=== PATIENT | female | born 1950 | race American Indian/Alaskan Native ===

== ENCOUNTER 2017-11-01 09:51 | Outpatient (CLI) | payer OTHER | END 2017-11-01 09:59 | disposition home or self-care (01) | LOC: MAMO-SONO 09:51 | DX: Z12.31 Encounter for screening mammogram for malignant neoplasm of breast (principal); N61.0 Mastitis without abscess ==

== ENCOUNTER 2018-09-25 10:45 | Outpatient (CLI) | payer OTHER | END 2018-09-25 10:55 | disposition home or self-care (01) | LOC: MAMO-SONO 10:45 | DX: Z12.31 Encounter for screening mammogram for malignant neoplasm of breast (principal); Z87.898 Personal history of other specified conditions; N61.0 Mastitis without abscess ==

== ENCOUNTER 2018-12-26 07:21 | Outpatient (CLI) | payer OTHER | END 2018-12-26 07:25 | disposition home or self-care (01) | LOC: SONOGRAMA 07:21 | DX: N60.11 Diffuse cystic mastopathy of right breast (principal); R92.0 Mammographic microcalcification found on diagnostic imaging of breast ==

== ENCOUNTER 2019-04-15 10:14 | Outpatient (CLI) | payer OTHER | END 2019-04-15 10:16 | disposition home or self-care (01) | LOC: SONOGRAMA 10:14 | DX: N60.11 Diffuse cystic mastopathy of right breast (principal); N60.12 Diffuse cystic mastopathy of left breast ==

== ENCOUNTER 2019-08-29 13:41 | Outpatient (CLI) | payer OTHER | END 2019-08-29 13:56 | disposition home or self-care (01) | LOC: MAMO-SONO 13:41 | DX: R92.8 Other abnormal and inconclusive findings on diagnostic imaging of breast (principal) ==

== ENCOUNTER 2019-08-30 13:34 | Outpatient (CLI) | payer OTHER | END 2019-08-30 14:06 | disposition home or self-care (01) | LOC: NUCLEAR 13:34 | DX: M81.0 Age-related osteoporosis without current pathological fracture (principal) ==

== ENCOUNTER 2020-01-14 10:33 | Outpatient (CLI) | payer OTHER | END 2020-01-14 10:59 | disposition home or self-care (01) | LOC: MAMO-SONO 10:33 | DX: Z12.31 Encounter for screening mammogram for malignant neoplasm of breast (principal); N60.11 Diffuse cystic mastopathy of right breast; N60.12 Diffuse cystic mastopathy of left breast ==

== ENCOUNTER 2020-12-15 10:46 | Outpatient (CLI) | payer OTHER | END 2020-12-15 10:54 | disposition HB | LOC: MAMO-SONO 10:46 | PROVIDERS: ATTEND Specialist | DX: Z12.31 Encounter for screening mammogram for malignant neoplasm of breast (principal); N60.11 Diffuse cystic mastopathy of right breast; N60.12 Diffuse cystic mastopathy of left breast ==

== ENCOUNTER 2022-01-24 10:41 | Outpatient (CLI) | payer OTHER | END 2022-01-24 10:55 | disposition home or self-care (01) | LOC: MAMO-SONO 10:41 | PROVIDERS: ATTEND Obstetrics & Gynecology | DX: N60.11 Diffuse cystic mastopathy of right breast (principal); N60.12 Diffuse cystic mastopathy of left breast ==

== ENCOUNTER 2023-03-17 14:05 | Outpatient (CLI) | payer OTHER | END 2023-03-17 14:21 | disposition home or self-care (01) | LOC: MAMO-SONO 14:05 | PROVIDERS: ATTEND Obstetrics & Gynecology | DX: N60.11 Diffuse cystic mastopathy of right breast (principal); N60.12 Diffuse cystic mastopathy of left breast ==

== ENCOUNTER 2025-09-18 11:46 | Outpatient (CLI) | payer OTHER | END 2025-09-18 11:51 | disposition home or self-care (01) | LOC: MAMO-SONO 11:46 | DX: N60.11 Diffuse cystic mastopathy of right breast (principal); N60.12 Diffuse cystic mastopathy of left breast; N60.19 Diffuse cystic mastopathy of unspecified breast; Z12.31 Encounter for screening mammogram for malignant neoplasm of breast ==

== ENCOUNTER 2025-09-19 10:31 | Outpatient (CLI) | payer OTHER | END 2025-09-19 10:33 | disposition home or self-care (01) | LOC: NUCLEAR 10:31 | PROVIDERS: ATTEND Obstetrics & Gynecology | DX: M81.0 Age-related osteoporosis without current pathological fracture (principal) ==